=== PATIENT | female | born 1995 | race Caucasian/White ===

== ENCOUNTER → 2021-11-24 11:12 | Outpatient (CLI) | payer OTHER, SELFPAY ==
--- NOTE | 2021-11-24 | DI.US.S_ITS ---
PROCEDURE: US PELVIC COMPLETE INDICATIONS: PELVIC PAIN TECHNIQUE: Real-time scanning was performed of the pelvic organs, with image documentation. Additional endovaginal scanning was necessary due to incomplete visualization of the adnexal and endometrial structures by transabdominal scanning. COMPARISON: None. FINDINGS: Uterus: Uterus is anteverted and normal in size at 8.4 x 4 x 4.6 cm. The myometrium is heterogeneous. The endometrium measures 2.2 mm combined thickness. The cervix is unremarkable. Ovaries: The right ovary measures 4.1 x 2 x 2.1 cm. The left ovary measures 3.4 x 2 x 1.6 cm. The ovaries have a normal sonographic appearance. Less than 12 follicles can be seen in each ovary. No adnexal masses are seen. Other: No pathologic free abdominal or pelvic fluid. IMPRESSION: No significant abnormality. We strive to produce accurate, complete, and clear reports of imaging services. To assist us in improving patient care, this report was composed using standard report templates and voice recognition software. Therefore, it may contain abnormal punctuation, insertions and/or omissions. Occasional wrong-word or sound-alike substitutions may occur. Though we review the report and make efforts to correct it, we do recommend that the report be read carefully in proper context to recognize any text inaccuracies. Dictated by: Sin Fitch M.D. on 11/24/2021 at 12:24 Approved by: Sin Fitch M.D. on 11/24/2021 at 12:26
== END ==
PROVIDERS: Referring Provider Obstetrics & Gynecology; Visit Provider Obstetrics & Gynecology
DX: R10.2 Pelvic and perineal pain (principal)
CPT/HCPCS: 76830; 76856